=== PATIENT | male | born 1960 | race Caucasian/White ===

== ENCOUNTER 2016-08-21 22:08 | Emergency (ER) | payer OTHER ==
[~2016-08-21] VITALS: Ht 175.3 cm; Wt 77.2 kg
[2016-08-21 22:12] VITALS: TEMP 36.7; Ht 175.3 cm; Wt 77.2 kg
[2016-08-21] MEDS ORDERED: ONDANSETRON INJ 2 MG/ML 2 ML VIAL IV STA (22:31)
[2016-08-21] MEDS ORDERED: MoRPHine SULFATE 4 MG/ML 1 ML CARP\\VIAL IV STA (22:31)
[2016-08-21] MEDS ORDERED: CEFTRIAXONE SOD INJ 1 GM in DEXTROSE 5% ADD-VANTAGE 50ML 50 ML IV STA (22:31)
[2016-08-21] MEDS ORDERED: ACETTAB15 PO (22:45)
[2016-08-21] MEDS ORDERED: AMLO-114 PO (22:45)
[2016-08-21] MEDS ORDERED: HYDR200T5 PO (22:45)
[2016-08-21] MEDS ORDERED: PANT40TA PO (22:45)
[2016-08-21] MEDS ORDERED: MULT-506 PO (22:45)
[2016-08-21] MEDS ORDERED: ATEN50TA8 PO (22:45)
[2016-08-21] MEDS ORDERED: MISCCAP80 PO (22:45)
[2016-08-21] MEDS ORDERED: CASC450C3 PO (22:45)
[2016-08-21] MEDS ORDERED: BACL10TA PO (22:45)
[2016-08-21] MEDS ORDERED: SODIUM CHLORIDE 0.9% 1000ML 1,000 ML IV ONE (22:45)
[2016-08-21] MEDS ORDERED: HYDR-4330 PO (22:45)
[2016-08-21] MEDS ORDERED: FLUT0.15 NAE (22:46)
[2016-08-21] MEDS ORDERED: SIME1CAP9 PO (22:48)
[2016-08-21] MEDS ORDERED: CEFTRIAXONE SOD INJ 1 GM ADDVIAL ONE (22:50)
--- NOTE | 2016-08-21 22:55 | DIAGNOSTIC IMAGING REPORT ---
LEFT FOOT 3 VIEWS CLINICAL HISTORY: Left first toe pain and erythema. FINDINGS: 3 views of the left foot are obtained. No prior studies are available for comparison at the time of dictation. The skeletal structures are well mineralized. No fracture is seen. Air is mild degenerative narrowing seen at the first metatarsophalangeal joint. The joint spaces of the foot are otherwise maintained. No bony erosion is suggested. The overlying soft tissues are within normal limits. IMPRESSION: No acute bony abnormality is seen in the left foot. Electronically signed by: Vik Engle M.D. 08/21/2016 10:54 PM Dictated Date/Time: 08/21/2016 10:51 PM
[2016-08-21 23:21] LABS: BASO % 0.3 %; BASO ABS # 0.02 K/uL (0-0.2); COMPLETE YES; EOS % 4.5 %; HEMATOCRIT 38.6 % (42-52); IG% 0.3 %; LYMPH % 29.4 %; LYMPH ABS # 2.15 K/uL (1.2-3.4); MEAN CELL VOLUME 99.2 fL (80-100); MEAN CORPUSCULAR HEMOGLOBIN 33.9 pg (25-34); MEAN CORPUSCULAR HGB CONC 34.2 g/dl (32-36); MEAN PLATELET VOLUME 10.4 fL (7.4-10.4); MONO % 10.9 %; NEUT % 54.6 %; PLATELET COUNT 165 K/uL (130-400); RED BLOOD COUNT 3.89 M/uL (4.7-6.1); WHITE BLOOD COUNT 7.31 K/uL (4.8-10.8)
[2016-08-21 23:55] LABS: BUN/CREATININE RATIO 14.5 (10-20); CALCIUM 8.9 mg/dl (8.5-10.1); CREATININE 1.4 mg/dl (0.60-1.40); URIC ACID 8.2 mg/dl (2.6-7.2)
[2016-08-22] MEDS ORDERED: CEPH500C2 PO (00:25)
[2016-08-22] MEDS ORDERED: CEPHALEXIN 500MG HOME PACK 1 EA BTL PO ONE (00:30)
[2016-08-22] MEDS ORDERED: NORCO 5/325MG HOME PACK PO ONE (00:30)
[2016-08-22 00:36] VITALS: BP 138/70; PULSE 68; O2SAT 98
--- NOTE | 2016-08-23 01:40 | EMERGENCY ROOM VISIT NOTE ---
ED Visit Note First contact with patient: 22:20 Chief Complaint: My left big toe is red and swollen. History of Present Illness: Mr. Estrada is a 56-year-old white male who ambulates into the ED complaining of swelling and redness to the left great toe , ankle and lower leg. Patient reports he was referred to the ED by a local urgent care center for further evaluation and care. Patient reports yesterday morning, approximately 36 hours ago, he awoke from sleep and noted that his left great toe was sore. This soreness sensation stayed on throughout the day. Then he reports this morning when he woke up he noted that the left great toe was now red and swollen. Currently patient describes his discomfort as a deep achy sensation at the left first MTP joint and first proximal phalange. He rates his discomfort 10/10. He denies radiation of his discomfort. He has not taken any medications for pain prior to arrival at the hospital. The pain worsens with palpation, the patient off place of ambulation and flexion and extension of the first MTP joint. He has not identified any alleviating factors related to the pain. Associated with his pain he reports there were is red streaking up his foot to the lateral malleolus area and erythema and mild discomfort over the lateral malleolus. He denies fevers, chills, sweats, other skin eruptions, other skin color changes , upper respiratory tract symptoms, shortness of breath, decreased appetite, nausea/vomiting, foot weakness/numbness/tingling, recent trauma to the great toe , history of gout and history of surgeries. Review of Systems: As noted above in history of present illness. All body systems were reviewed and found to be negative as noted above. Past Medical History: GERD, bicuspid aortic valve, chronic back pain, unspecified knee, eye, elbow, foot and stomach surgery. Current Medications: Medications Dose Route/Sig Max Daily Dose Days Date Category Gas Relief (Simethicone) 180 Mg Cap 3 Cap PO UD PRN 08/21/16 Reported Flonase Allergy Relief (Fluticasone Propionate (Nasal)) 50 Mcg/Act Spr 2 Sprays YI DAILY 08/21/16 Reported Probiotic (Probiotic Product) 1 Cap Cap 1 Cap PO DAILY 08/21/16 Reported [place] 450 Mg Cap 1 Cap PO DAILY 08/21/16 Reported Excedrin Tension Headache (Acetaminophen-Caffeine) 1 Tab Tab 2 Tabs PO Q6 PRN 08/21/16 Reported Multivitamin (Multivitamins) Tab 1 Tab PO DAILY 08/21/16 Reported Protonix (Pantoprazole Sodium) 40 Mg Tab 40 Mg PO DAILY 08/21/16 Reported Lortab 5-325 mg (Hydrocodone-Acetaminophen) 1 Tab Tab 1 Tab PO Q6 PRN 08/21/16 Reported Norvasc (Amlodipine Besylate) 10 Mg Tab 10 Mg PO DAILY 08/21/16 Reported Tenormin (Atenolol) 50 Mg Tab 50 Mg PO QAM 08/21/16 Reported Lioresal (Baclofen) 10 Mg Tab 10 Mg PO TID 08/21/16 Reported Plaquenil (Hydroxychloroquine Sulfate) 200 Mg Tab 1 Tab PO BID 90 08/21/16 Reported Allergies to Medications: Oxycodone. Social History: Patient is currently employed; he feels safe in his home environment; he admits to tobacco and alcohol use. Physical Examination: Vital Signs: Date Time Temp Pulse Resp B/P (MAP) Pulse Ox O2 Delivery O2 Flow Rate FiO2 08/22/16 00:36 68 20 138/70 98 08/21/16 23:09 76 20 140/75 93 Room Air 08/21/16 22:12 36.7 71 16 160/66 98 Room Air GENERAL: 56-year-old male in mild distress due to pain, nontoxic-appearing, afebrile and hemodynamically stable. NEUROLOGICAL: Awake, alert and oriented to person, place and time. Answering questions appropriately and following commands. Lymph gait. Good hand eye coordination. No focal motor or sensory deficits. SKIN: Warm, dry and pink. HEENT: Atraumatic and normocephalic. PERRLA. Sclera white and conjunctiva pink. No drainage from naris. Oral cavity moist and pink. Pharynx is nonerythematous or edematous. Speech normal. No lymphadenopathy. Trachea midline. No jugular venous distention. BACK: No tenderness over the bony spine. No CVA tenderness. THORAX: Lungs sounds are clear to auscultation and equal bilaterally with symmetrical chest wall. No wheezing, rales or rhonchi. No crepitus, tenderness , subcutaneous air or deformities noted. HEART: Regular rate and rhythm. No gallops, rubs or murmurs are appreciated. ABDOMEN: Flat, soft and nontender. Positive bowel sounds in all quadrants. No guarding, rigidity or organomegaly. LEFT LOWER LEG: No gross bony deformity. There is mild erythema over the lateral malleolus. This is associated with mild swelling, but the area is nontender. Patient reports he was told at the urgent care center there was a red streak leading from his toe to the ankle but I do not appreciate one at this time. This area is not warm to touch and does not appear cellulitic. He has full range of motion of the ankle in all movements against resistance. I do not appreciate any laxity of the ankle. The area of erythema is mildly tender to palpation but I do not appreciate any other areas of tenderness. There is no bony deformity or crepitus. The great toe is erythematous and edematous from the tip to just proximal to the first MTP joint. It is edematous and appear cellulitic. The toe is warm to the touch. As previously noted I do not appreciate any lymphangitis. The toe does appear cellulitic. The entire toe is tender to the proximal first metatarsal. Throughout the toe patient was able to distinguish light sensations. No blood or purulent drainage under the toenail. I do not appreciate any bony deformity or crepitus. Patient has decreased range of motion due to erythema and edema as well as pain. Capillary refill is brisk. ED Course: Patient is assessed as noted above. Patient's medication list was reviewed. Laboratory Testing: Test 08/21/16 22:28 Range/Units White Blood Count 7.31 4.8-10.8 K/uL Red Blood Count 3.89 4.7-6.1 M/uL Hemoglobin 13.2 14.0-18.0 g/dL Hematocrit 38.6 42-52 % Mean Corpuscular Volume 99.2 80-100 fL Mean Corpuscular Hemoglobin 33.9 25-34 pg Mean Corpuscular Hemoglobin Concent 34.2 32-36 g/dl Platelet Count 165 130-400 K/uL Mean Platelet Volume 10.4 7.4-10.4 fL Neutrophils (%) (Auto) 54.6 % Lymphocytes (%) (Auto) 29.4 % Monocytes (%) (Auto) 10.9 % Eosinophils (%) (Auto) 4.5 % Basophils (%) (Auto) 0.3 % Neutrophils # (Auto) 3.99 1.4-6.5 K/uL Lymphocytes # (Auto) 2.15 1.2-3.4 K/uL Monocytes # (Auto) 0.80 0.11-0.59 K/uL Eosinophils # (Auto) 0.33 0-0.5 K/uL Basophils # (Auto) 0.02 0-0.2 K/uL RDW Standard Deviation 47.4 36.4-46.3 fL RDW Coefficient of Variation 13.2 11.5-14.5 % Immature Granulocyte % (Auto) 0.3 % Immature Granulocyte # (Auto) 0.02 0.00-0.02 K/uL Sodium Level 145 136-145 mmol/L Potassium Level 4.0 3.5-5.1 mmol/L Chloride Level 111 98-107 mmol/L Carbon Dioxide Level 27 21-32 mmol/L Anion Gap 7.0 3-11 mmol/L Blood Urea Nitrogen 20 7-18 mg/dl Creatinine 1.40 0.60-1.40 mg/dl Est Creatinine Clear Calc Drug Dose 60.3 ml/min Estimated GFR () 65.6 Estimated GFR (Non- 56.6 BUN/Creatinine Ratio 14.5 10-20 Random Glucose 107 70-99 mg/dl Uric Acid 8.2 2.6-7.2 mg/dl Calcium Level 8.9 8.5-10.1 mg/dl Blood Culture: Pending Left Foot X-Rays: Were read by myself and the radiologist showing no acute fractures or dislocations. Radiologist does note mild degenerative narrowing at the first MTP joint. Patient was hydrated with normal saline, he received 4 mg of morphine IV for pain and 4 mg of Zofran IV. Additionally patient received 1 g of Rocephin IV for antibiotic coverage. Patient was reassessed multiple times during his stay in the emergency department. Patient's case was reviewed with Dr. Ross; we agreed on diagnostic approach , treatment, disposition and plan. Patient was educated about tonight's findings and instructed on his treatment plan; he verbalizes understanding and agreement with this plan. Clinical Impression: Left great toe cellulitis. Questionable gout with elevated uric acid. Decision-Making: Initially my differential diagnosis I considered cellulitis, gout, fracture and other causes. Disposition: Patient discharged home in stable condition accompanied by his ; prior to departure he was reassessed and subjectively reported he was feeling better and rated his discomfort 4/10. Plan: Patient does have a home prescription of [place] and he was encouraged to alternate [place] and ibuprofen for his pain. Patient was prescribed Keflex 500 mg 4 times a day for 10 days. Patient was encouraged to keep his foot elevated. Patient was encouraged to follow-up with his primary care provider when he gets home in 3-4 days. Patient was encouraged return the ED for worsening/uncontrolled redness, red streaking, fevers, uncontrolled pain or any new/concerning symptoms.
== END 2016-08-22 00:42 | disposition home or self-care (01) ==
LOC: C.EDB 22:10 → C.EDC 08-22 00:42
DX: L03.032 Cellulitis of left toe (principal); K21.9 Gastro-esophageal reflux disease without esophagitis; G89.29 Other chronic pain; F17.200 Nicotine dependence, unspecified, uncomplicated; Z98.890 Other specified postprocedural states; Z88.5 Allergy status to narcotic agent